=== PATIENT | female | born 1980 | race Two or more races ===

== ENCOUNTER 2020-04-17 05:30 | Inpatient (IN) | payer OTHER ==
[~2020-04-17] VITALS: Ht 160 cm; Wt 72.6 kg
[2020-04-17] MEDS ORDERED: METOPROLOL SUCC25 MG PO (06:40)
[2020-04-17] MEDS ORDERED: ATABEX DHA 200200 MG PO (06:41)
[2020-04-20] MEDS ORDERED: Tylenol #3 PO (12:33)
== END 2020-04-20 12:58 | DRG 788 ==
LOC: SURG-SUITE 05:30 → LDR 05:30 → SURG-SUITE 18:26
PROVIDERS: ADMIT Obstetrics & Gynecology; ATTEND Obstetrics & Gynecology
PROC: 4A1HXCZ Monitoring of Products of Conception, Cardiac Rate, External Approach (ICD-10-PCS; 2020-04-17)
PROC: 10D00Z1 Extraction of Products of Conception, Low, Open Approach (ICD-10-PCS; principal; 2020-04-17 17:15)
DX: O62.1 Secondary uterine inertia (principal); Z3A.38 38 weeks gestation of pregnancy; Z37.0 Single live birth